=== PATIENT | male | born 1960 | race Caucasian/White ===

== ENCOUNTER 2017-09-30 22:19 | Emergency (ER) | payer BC ==
[2017-09-30 22:42] VITALS: BP 135/83; PULSE 70; RESP 18; TEMP 97.3
--- NOTE | 2017-09-30 22:46 | ED ---
ENT HPI - General Chief complaint: ENT Stated complaint: Ear pain Time Seen by Provider: 09/30/17 22:30 Source: patient Mode of arrival: ambulatory Limitations: no limitations - History of Present Illness Initial comments: This is a 57 year old male patient who presents with ear fullness and hearing loss that began last night. The patient states he is having more difficulty hearing in the right ear than the left. He denies any pain within the ear or external ear pain. He denies fever or trauma. The patient states that he recently had his annual physical exam and was all clear. - Related Data Previous Rx's Medication Instructions Recorded Fluticasone Nasal [place] [Flonase 2 spr EA NOSTRIL DAILY #1 bottle 09/30/17 Nasal [place]] Allergies Allergy/AdvReac Type Severity Reaction Status Date / Time lactose AdvReac Nausea & Verified 09/30/17 22:39 Vomiting & Diarrhea Review of Systems ROS Statement: Those systems with pertinent positive or pertinent negative responses have been documented in the HPI. ROS Other: All systems not noted in ROS Statement are negative. Past Medical History Past Medical History: No Reported History History of Any Multi-Drug Resistant Organisms: None Reported Past Surgical History: Orthopedic Surgery Additional Past Surgical History / Comment(s): cervical decompression C7 2011 Past Psychological History: No Psychological Hx Reported Smoking Status: Never smoker Past Alcohol Use History: Occasional Past Drug Use History: None Reported General Exam Limitations: no limitations General appearance: alert, in no apparent distress Head exam: Present: atraumatic, normocephalic, normal inspection Eye exam: Present: normal appearance, PERRL, EOMI. Absent: scleral icterus, conjunctival injection, periorbital swelling Pupils: Present: normal accommodation ENT exam: Present: mucous membranes moist, normal external ear exam, other ( bony landmarks noted in bilateral ears. Tympanic membranes are bulging but not eyrthematous or inflamed. There is a signifcant amount of cerumen in the right ear.). Absent: TM's normal bilaterally Neurological exam: Present: alert, oriented X3, CN II-XII intact Psychiatric exam: Present: normal affect, normal mood Skin exam: Present: warm, dry, intact, normal color. Absent: rash Course Vital Signs 09/30/17 22:34 Temperature 97.3 F L Pulse Rate 70 Respiratory 18 Rate Blood Pressure 135/83 O2 Sat by Pulse 96 Oximetry Procedures - Ear Wax Removal Right Ear Ear Canal Irrigated by: RN Ear Canal Irrigated With: warm saline with H2O2 using syringe/angiocath Ear Canal(s) Curetted: plastic loops Results: Re-examined: cerumen removed completely TM Visible: TM(s) intact, normal appearance Ear Canal: atraumatic Patient Tolerated Procedure: well, no complications Complications: no problems Medical Decision Making - Medical Decision Making This 57 year old patient came in with a chief complaint of hearing loss. Physical exam revealed a cerumen impaction of the right ear and Eustachian tube dysfunction of bilateral ears due to bulging, non-erythematous tympanic membranes. The cerumen impaction was treated by the nurse with irrigation. The findings were discussed with the patient. Disposition Clinical Impression: Impacted cerumen of right ear, Acute dysfunction of both eustachian tubes Disposition: HOME SELF-CARE Condition: Stable Instructions: Cerumen Impaction (ED) Additional Instructions: Please return to the Emergency Department if experiencing new or worsening symptoms. Prescriptions: Fluticasone Nasal [place] [Flonase Nasal [place]] 2 spr EA NOSTRIL DAILY #1 bottle Referrals: Anne Sandoval MD [Primary Care Provider] - 1-2 days Time of Disposition: 23:01
== END 2017-09-30 23:11 | disposition home or self-care (01) ==
LOC: EC 22:19
DX: H61.21 Impacted cerumen, right ear (principal); H69.93 Unspecified Eustachian tube disorder, bilateral; Z91.011 Allergy to milk products
CPT/HCPCS: 69210; 99282

== ENCOUNTER → 2023-04-11 | Outpatient (CLI) | payer BC ==
--- NOTE | 2023-04-11 08:25 | CT ---
EXAMINATION TYPE: CT ankle RT wo con, CT foot RT wo con CT DLP: 246.7 (accession [id number]), 278.5 (accession [id number]) mGycm, Automated exposure control for dose reduction was used. DATE OF EXAM: 04/11/2023 7:49 AM COMPARISON: None CLINICAL INDICATION:Male, 62 years old with history of M25.571 PAIN IN RIGHT ANKLE AND JOINTS OF RIGH T FO; PHH, pain from fall TECHNIQUE: Axial images were obtained of the right foot and ankle . Additional coronal and sagittal reformatted images and soft tissue and bone window were obtained for review. 3-D reconstruction was c reated on a separate workstation. Contrast used: mL of , Oral contrast used: None FINDINGS: There is no evidence of fracture, subluxation, or dislocation. No significant soft tissue swelling or joint effusion is identified. No focal muscular atrophy or edema is identified. No radiop aque foreign body identified. Calcaneal plantar spurring and Achilles enthesophyte formation. Accessory ossicle next to the cuboid is present. Minimal scattered joint space narrowing IMPRESSION: No evidence for acute fracture or dislocation. Minimal scattered multifocal degeneration changes.
== END | disposition home or self-care (01) ==
LOC: RADCTMAIN 07:05
PROVIDERS: ATTEND Family Medicine
DX: M19.071 Primary osteoarthritis, right ankle and foot (principal); M25.571 Pain in right ankle and joints of right foot

== ENCOUNTER → 2023-09-22 | Outpatient (CLI) | payer BC ==
--- NOTE | 2023-09-22 12:51 | US ---
EXAMINATION TYPE: US groin RT DATE OF EXAM: 09/22/2023 COMPARISON: NONE CLINICAL INDICATION: Male, 63 years old with history of R60.0 LOCALIZED EDEMA; Pt states right groin and right anterior thigh pain x 2 months TECHNIQUE: Right Groin FINDINGS: No evidence of mass or hernia right groin and right thigh in area of pt's pain IMPRESSION: Unremarkable study
== END | disposition home or self-care (01) ==
LOC: RADUSWWP 12:21
PROVIDERS: ATTEND Family Medicine
DX: R60.0 Localized edema (principal)